=== PATIENT | male | born 2000 | race Caucasian/White ===

== ENCOUNTER 2019-08-08 13:24 | Emergency (ER) | payer SELFPAY ==
[2019-08-08 15:03] VITALS: BP 118/61
== END 2019-08-08 17:27 | disposition left against medical advice (07) ==
LOC: ER 13:24
DX: Z53.1 Procedure and treatment not carried out because of patient's decision for reasons of belief and group pressure (principal)

== ENCOUNTER 2019-08-12 14:35 | Emergency (ER) | payer SELFPAY ==
[2019-08-12 14:41] VITALS: BP 130/61
[2019-08-12] MEDS ORDERED: ONDANSETRON 4 MG TAB.RAPDIS PO ONE (14:45)
--- NOTE | 2019-08-12 14:46 | ER Document Report ---
ED Medical Screen (RME) - General Chief Complaint: Abdominal Pain Stated Complaint: ABDOMINAL PAIN Time Seen by Provider: 08/12/19 14:43 Mode of Arrival: Ambulatory Information source: Patient Notes: Otherwise healthy 18-year-old male presenting with intermittent upper abdominal pain and periumbilical abdominal pain over the last 3 to 4 days. He reports associated nausea but denies any vomiting, diarrhea or fever. He states the pain feels like a severe cramping pain. Nothing makes it worse or better. Denies any sick contacts. Abdomen soft, nontender. I have greeted and performed a rapid initial assessment of this patient. A comprehensive ED assessment and evaluation of the patient, analysis of test results and completion of the medical decision making process will be conducted by additional ED providers. I have specifically instructed the patient or family members with the patient to immediately return to any nursing staff should anything change in the patient's condition or with their chief complaint. - Related Data Allergies/Adverse Reactions: No Known Allergies Allergy (Unverified 08/08/19 15:39) Physical Exam - Vital signs Vitals: Temp Pulse Resp BP Pulse Ox 98.2 F 90 20 130/61 H 98 08/12/19 14:40 08/12/19 14:40 08/12/19 14:40 08/12/19 14:40 08/12/19 14:40 Course - Vital Signs Vital signs: Temp Pulse Resp BP Pulse Ox 98.2 F 90 20 130/61 H 98 08/12/19 14:40 08/12/19 14:40 08/12/19 14:40 08/12/19 14:40 08/12/19 14:40
--- NOTE | 2019-08-12 15:02 | ER Document Report ---
ED General - General Chief Complaint: Abdominal Pain Stated Complaint: ABDOMINAL PAIN Time Seen by Provider: 08/12/19 14:43 Mode of Arrival: Ambulatory Information source: Patient - HPI Notes: Patient presents with complaints of abdominal pain. He states is in the mid abdominal area. It is a cramping sensation. At its worst it was moderate to severe. Currently it is mild. It is been going on for approximately 1 week. He states it is much better now than it was several days ago. He states he is had some nausea but no vomiting. No diarrhea or problems with stool. No problems with urination. It does get worse with eating and better when he does not eat. He has had no previous abdominal surgeries. No chronic medical problems. No fevers. The pain radiates across the upper part of the abdomen - Related Data Allergies/Adverse Reactions: No Known Allergies Allergy (Unverified 08/08/19 15:39) Past Medical History - General Information source: Patient - Social History Smoking Status: Never Smoker Frequency of alcohol use: None Drug Abuse: None Family History: Reviewed & Not Pertinent Patient has homicidal ideation: No Review of Systems - Review of Systems Constitutional: denies: Chills, Fever Cardiovascular: denies: Chest pain, Palpitations Respiratory: denies: Cough, Short of breath -: Yes All other systems reviewed and negative Physical Exam - Vital signs Vitals: Temp Pulse Resp BP Pulse Ox 98.2 F 90 20 130/61 H 98 08/12/19 14:40 08/12/19 14:40 08/12/19 14:40 08/12/19 14:40 08/12/19 14:40 Interpretation: Normal - General General appearance: Appears well, Alert - HEENT Head: Normocephalic, Atraumatic Eyes: Normal Pupils: PERRL - Respiratory Respiratory status: No respiratory distress Chest status: Nontender Breath sounds: Normal Chest palpation: Normal - Cardiovascular Rhythm: Regular Heart sounds: Normal auscultation Murmur: No - Abdominal Inspection: Normal Distension: No distension Bowel sounds: Normal Tenderness: Nontender Organomegaly: No organomegaly - Back Back: Normal, Nontender - Extremities General upper extremity: Normal inspection, Nontender, Normal color, Normal ROM, Normal temperature General lower extremity: Normal inspection, Nontender, Normal color, Normal ROM, Normal temperature, Normal weight bearing. No: Rich's sign - Neurological Neuro grossly intact: Yes Cognition: Normal Orientation: AAOx4 Beulah Coma Scale Eye Opening: Spontaneous Marc Coma Scale Verbal: Oriented Beulah Coma Scale Motor: Obeys Commands Beulah Coma Scale Total: 15 Speech: Normal Motor strength normal: LUE, RUE, LLE, RLE Sensory: Normal - Psychological Associated symptoms: Normal affect, Normal mood - Skin Skin Temperature: Warm Skin Moisture: Dry Skin Color: Normal Course - Re-evaluation Re-evalutation: 08/12/19 15:31 Patient presents with abdominal pain that he states was worse several days ago but is now better. He states he would just like some nausea medicine for home so that he can continue to work. On exam he has a nonsurgical abdomen and does not have any significant tenderness. The right lower quadrant is not tender to palpation. Patient only has a very minimally elevated white blood cell count and otherwise laboratories are unremarkable. His vitals are stable. It does seem reasonable at this time to send the patient home with nausea medication and have him return if he has worsening symptoms. - Vital Signs Vital signs: Temp Pulse Resp BP Pulse Ox 98.2 F 90 20 130/61 H 98 08/12/19 14:43 08/12/19 14:40 08/12/19 14:40 08/12/19 14:40 08/12/19 14:40 - Laboratory Result Diagrams: 08/12/19 14:55 08/12/19 14:55 Laboratory results interpreted by me: 08/12/19 08/12/19 08/12/19 14:55 14:55 14:55 WBC 10.9 H Absolute Neuts (auto) 8.4 H Calcium 10.6 H Total Protein 9.0 H Albumin 5.7 H Urine Protein 30 H Urine Ketones TRACE H Discharge - Discharge Clinical Impression: Periumbilical abdominal pain Condition: Stable Disposition: HOME, SELF-CARE Instructions: Abdominal Pain ([facility]) Additional Instructions: Please return to the emergency department if you have worsening pain, vomiting, fevers, or any other concerns. Prescriptions: Ondansetron [Zofran Odt 4 mg Tablet] 1 - 2 tab PO Q4H PRN #15 tab.rapdis PRN Reason: For Nausea/Vomiting Forms: Return to Work Referrals: [facility] [Provider Group] - Follow up as needed
[2019-08-12 15:10] LABS: ABSOLUTE LYMPHOCYTES (AUTO) 1.6 10^3/uL (0.5-4.7); ABSOLUTE NEUT (AUTO) 8.4 10^3/uL (1.7-8.2); BASOPHILS % (AUTO) 0.3 % (0-2); EOSINOPHILS % (AUTO) 0.2 % (0-6); LYMPHOCYTES % (AUTO) 14.2 % (13-45); MEAN CORPUSCULAR HGB CONC 35.5 g/dL (32.0-36.0); MEAN CORPUSCULAR VOLUME 90 fl (80-97); MONOCYTES % (AUTO) 8.7 % (3-13); PLATELET COUNT 227 10^3/uL (150-450); RED BLOOD COUNT 5.01 10^6/uL (4.35-5.55); SEGMENTED NEUTROPHILS % (AUTO) 76.6 % (42-78); TOTAL CELLS COUNTED % (AUTO) 100 %; WHITE BLOOD COUNT 10.9 10^3/uL (4.0-10.5)
[2019-08-12 15:25] LABS: ALBUMIN 5.7 g/dL (3.5-5.0); ALKALINE PHOSPHATASE 77 U/L (38-126); ANION GAP 12 (5-19); APPEARANCE,URINE SLIGHTLY-CLOUDY; ASPARTATE AMINO TRANSFERASE 46 U/L (17-59); BILIRUBIN,DIRECT 0.1 mg/dL (0.0-0.4); BILIRUBIN,TOTAL 1.3 mg/dL (0.2-1.3); BILIRUBIN,URINE NEGATIVE (NEGATIVE); BLOOD UREA NITROGEN 17 mg/dL (7-20); CALCIUM 10.6 mg/dL (8.4-10.2); CARBON DIOXIDE 26 mmol/L (22-30); CHLORIDE 101 mmol/L (98-107); COLOR,URINE AMBER; GLUCOSE 96 mg/dL (75-110); GLUCOSE, URINE NEGATIVE (NEGATIVE); KETONES,URINE TRACE mg/dL (NEGATIVE); LEUKOCYTE ESTERASE,URINE NEGATIVE (NEGATIVE); NITRITE,URINE NEGATIVE (NEGATIVE); POTASSIUM 4.3 mmol/L (3.6-5.0); PROTEIN,URINE 30 mg/dL (NEGATIVE); URINE SPECIFIC GRAVITY 1.035; UROBILINOGEN,URINE NEGATIVE mg/dL (<2.0)
== END 2019-08-12 15:42 | disposition home or self-care (01) ==
LOC: ER 14:35
DX: R10.33 Periumbilical pain (principal); R10.813 Right lower quadrant abdominal tenderness; R11.0 Nausea; D72.829 Elevated white blood cell count, unspecified
CPT/HCPCS: 99284; 36415; 83690; 85025; 80053; 81001; S0119